=== PATIENT | female | born 1960 | race Caucasian/White ===

== ENCOUNTER → 2016-11-13 | Outpatient (CLI) | payer BC ==
[~2016-11-13] MED LIST: ALEVE220 MG PO; AMLODIPINE BESYL5 MG PO; BENADRYL25 MG PO; FISH OIL 1,0001 EAC1 PO; FISH OIL 1,0001 EAC3 PO; GLUCOPHAGE500 MG PO; IRON65 PO; LASIX20 MG PO; LOPID600 MG PO; ONE DAILY WOME1 EAC1 PO; POTASSIUM GLUCO99 MG PO; PRINIVIL OR ZES10 MG PO
--- NOTE | 2016-11-13 10:16 | NUR ---
Met with patient prior to breast biopsy. Introduced self and role of nurse navigator and told her I would call on Wednesday. No questions or needs.
== END | disposition disaster alternative care site (69) ==
LOC: GPOC 11-12 15:00 → GBCOE 09:30 → GPOC 10:00
PROC: 0HBU3ZX Excision of Left Breast, Percutaneous Approach, Diagnostic (ICD-10-PCS; principal; 2016-11-13)
DX: R92.0 Mammographic microcalcification found on diagnostic imaging of breast (principal)
CPT/HCPCS: J7050